=== PATIENT | male | born 1970 | race Caucasian/White ===

== ENCOUNTER 2019-01-11 08:49 | Emergency (ER) | payer BC, SELFPAY ==
[2019-01-11 08:51] VITALS: BP 144/91; PULSE 71; RESP 14; TEMP 36.6; O2SAT 98; BMI 19.5
--- NOTE | 2019-01-11 08:59 | EKG12_ITS ---
Test Reason : MEDICAL CLEARANCE Blood Pressure : / mmHG Vent. Rate : 070 BPM Atrial Rate : 070 BPM P-R Int : 108 ms QRS Dur : 104 ms QT Int : 388 ms P-R-T Axes : 079 063 056 degrees QTc Int : 419 ms Sinus rhythm with short NM Otherwise normal ECG Confirmed by CHESTER ESTRADA, SARAH ([id number]), technical editor ALMAS SERRANO ([id number]) on 01/13/2019 11:03:06 AM Referred By: IVELISSE Confirmed By:SARAH BRIGGS MD
[2019-01-11 09:49] VITALS: RESP 18
[2019-01-11 09:52] LABS: Absolute Lymphocyte Count 2.38 X10^3/ul (0.83-4.51); Absolute Neutrophil Count 6.6 X10^3/uL (2.0-7.7); Basophil# 0.08 X10^3/uL; Basophil% 0.8 % (0-1); Eosinophil# 0.33 X10^3/uL; Eosinophils% 3.3 % (0-5); Hematocrit 49.9 % (40-54); Hemoglobin 17.5 g/dl (13.0-16.5); Lymphocyte # 2.38 X10^3/ul (4.0); Lymphocyte % 23.5 % (19-41); Mean Corp Hgb Conc 35.1 g/gl (32-36); Mean Corpuscular Volume 94.2 fL (80-94); Mean Platelet Vol. 9.8 fl (6.2-12.0); Monocyte# 0.71 X10^3/uL; Neutrophil # 6.59 X10^3/uL (2.7-7.7); Neutrophil % 65.2 % (47-70); POSITIVE COUNT NO; POSITIVE DIFFERENTIAL NO; POSITIVE MORPHOLOGY NO; Platelet Count 255 K/mm3 (150-450); RBC Distribution Width SD 47.7 fl (35.1-43.9); White Blood Count 10.1 K/mm3 (4.4-11.0)
[2019-01-11 10:09] LABS: Bacteria 0 SEEN /hpf (None Seen); Mucous, Urine 0 SEEN /hpf (<or=2+); Red Blood Cells-Urine 0 SEEN /hpf (0-5); Squamous Epithelial Cells - UA 0 SEEN /hpf (0-5); White Blood Cells 0 SEEN /hpf (0-5)
--- NOTE | 2019-01-11 10:16 | ED.VISSUMM ---
- ER Visit Summary Date of Service: 01/11/19 Chief Complaint: Depression and suicidal ideation History of Present Illness: The patient is a 48 M resents the emergency department with depression. Patient is accompanied by his [id number]. He states that for about a year he has felt like a failure. He states that he got a good job in [employer] but will be losing his job as the facility is closing.. He states that he had an appendectomy about 1 year ago and has had some chronic pain in the right lower quadrant. He is . He is a 17-year-old daughter. He states he has a good relationship with them. He owns his home. He has no pending legal issues. He is a smoker rarely uses alcohol and occasionally uses marijuana. He states that use marijuana because it makes him feel better. He states that all of his issues seem to be snowballing and he feels increasingly worthless. He is now entertaining the idea of suicide. He called his mother in law today who brought him to the emergency department. Physical Examination: Afebrile vital signs are stable Gen: Well-nourished well-developed Head: Normocephalic atraumatic Eyes: Perrl EOMI ENT: TMs clear no rhinorrhea moist mucous membranes Neck: Supple no lymphadenopathy no JVD nontender CVS: Regular rate rhythm no murmurs normal S1-S2 Respiratory: No distress clear to auscultation bilaterally chest nontender Abdomen: Soft nontender nondistended normal bowel sounds no masses Back: Nontender Extremity: Nontender no edema Skin: Normal color no rash Neuro: alert orientated ?3 CN II-XII intact normal strength sensation Psych: Patient appears depressed. He admits to suicide as an option. He has a flat and blunted affect. He is occasionally tearful. He does not make any substantial eye contact. Test Results: EKG shows a sinus rhythm at a rate of 70. CBC CMP are negative. Urinalysis normal. Tox screen positive for cannabinoids. TSH 1.13. Emergency Department Course and Treatment: Patient was medically cleared and will be assessed by crisis. I would recommend hospital admission for suicidal ideation. Impression: 1. Major depression 2. Suicidal ideation This note was generated with [employer]ation software. It may contain incorrect words, spelling, and punctuation that were not noted in review of the chart prior to signing ED Disposition - Plan for ED Patient: Referrals: Juan José Monaco MD [Primary Care Provider] -
--- NOTE | 2019-01-11 10:19 | ED.DCSUM_ITS ---
- ER Visit Summary Date of Service: 01/11/19 Chief Complaint: Depression and suicidal ideation History of Present Illness: The patient is a 48 M resents the emergency department with depression. Patient is accompanied by his [id number]. He states that for about a year he has felt like a failure. He states that he got a good job in [employer] [employer] but will be losing his job as the facility is closing.. He states that he had an appendectomy about 1 year ago and has had some chronic pain in the right lower quadrant. He is . He is a 17-year-old daughter. He states he has a good relationship with them. He owns his home. He has no pending legal issues. He is a smoker rarely uses alcohol and occasionally uses marijuana. He states that use marijuana because it makes him feel better. He states that all of his issues seem to be snowballing and he feels increasingly worthless. He is now entertaining the idea of suicide. He called his mother in law today who brought him to the emergency department. Physical Examination: Afebrile vital signs are stable Gen: Well-nourished well-developed Head: Normocephalic atraumatic Eyes: Perrl EOMI ENT: TMs clear no rhinorrhea moist mucous membranes Neck: Supple no lymphadenopathy no JVD nontender CVS: Regular rate rhythm no murmurs normal S1-S2 Respiratory: No distress clear to auscultation bilaterally chest nontender Abdomen: Soft nontender nondistended normal bowel sounds no masses Back: Nontender Extremity: Nontender no edema Skin: Normal color no rash Neuro: alert orientated ?3 CN II-XII intact normal strength sensation Psych: Patient appears depressed. He admits to suicide as an option. He has a flat and blunted affect. He is occasionally tearful. He does not make any substantial eye contact. Test Results: EKG shows a sinus rhythm at a rate of 70. CBC CMP are negative. Urinalysis normal. Tox screen positive for cannabinoids. TSH 1.13. Emergency Department Course and Treatment: Patient was medically cleared and will be assessed by crisis. I would recommend hospital admission for suicidal ideation. Impression: 1. Major depression 2. Suicidal ideation This note was generated with [employer] software. It may contain incorrect words, spelling, and punctuation that were not noted in review of the chart prior to signing ED Disposition - Plan for ED Patient: Referrals: Juan José Monaco MD [Primary Care Provider] -
[2019-01-11 10:22] LABS: Color, Urine Yellow (Yellow); Glucose, Dipstick Normal (Normal); Ketone-Dipstick Negative (Negative); Leukocyte Esterase-Dipstick Negative /ul (Negative); Nitrite-Dipstick Negative (Negative); Occult Blood-Urine Negative /ul (Negative); Protein-Dipstick Negative (Negative); Specific Gravity, Urine 1.005 (1.002-1.030); Urine Bilirubin Dipstick Negative (Negative); Urine Clarity Clear (Clear); Urine Urobilinogen Normal (Normal)
[2019-01-11 10:39] LABS: Amphetamine Urine VISTA NEGATIVE (<1000 ng/mL); Barbiturate Urine VISTA NEGATIVE (< 200 ng/mL); Benzodiazepine Urine VISTA NEGATIVE (< 200 ng/mL); Cocaine Urine VISTA NEGATIVE (< 300 ng/mL); Ecstacy Urine VISTA NEGATIVE (< 500 ng/mL); Methadone Urine VISTA NEGATIVE (< 300 ng/mL); PCP Urine VISTA NEGATIVE (< 25 ng/mL); THC Urine VISTA POSITIVE (< 50 ng/mL); Vista UDS pH Range 6
[2019-01-11 10:47] LABS: AST(SGOT) 16 U/L (15-37); Alanine Aminotransfer ALT/SGPT 20 U/L (16-61); Alkaline Phosphatase 99 U/L (45-117); Anion Gap 3 (5-15); BUN 10 mg/dL (7-18); BUN/Creat Ratio 10.1 RATIO (10-20); Calcium,Total 9.3 mg/dL (8.5-10.1); Chloride 106 mmol/L (98-107); Creatinine, Serum 0.99 mg/dL (0.70-1.30); EST Glomerular Filtration Rate 85 mL/min (>60); Est Glom Filt Rate - Afr Amer 103 mL/min (>60); Estimated Creatinine Clearance 78.76 ml/min; Glucose 95 mg/dL (74-106); Lipase 269 U/L (73-393); Potassium 4.9 mmol/L (3.5-5.1); Sodium Level 136 mmol/L (136-145); Thyroid Stim Hormone (TSH) 1.13 uIU/mL (0.358-3.74)
[2019-01-11 11:00] VITALS: PULSE 78; RESP 18; O2SAT 98
[2019-01-11 12:00] VITALS: PULSE 80; RESP 16; O2SAT 98
[2019-01-11 13:00] VITALS: RESP 18
[2019-01-11 14:36] VITALS: BP 135/100; PULSE 71; RESP 16; TEMP 36.7; O2SAT 96
--- NOTE | 2019-01-11 14:45 | ED.RN ---
Report given to Octavio at [facility]
== END 2019-01-11 15:10 ==
PROVIDERS: Emergency Provider Emergency Medicine; Family Provider Family Medicine; PCP Family Medicine
DX: R45.851 Suicidal ideations (principal); F32.9 Major depressive disorder, single episode, unspecified; F17.200 Nicotine dependence, unspecified, uncomplicated
CPT/HCPCS: 80053; 80307; 80320; 81001; 83690; 84443; 85025; 93005; 99282; G0480

== ENCOUNTER 2021-08-06 14:39 | Emergency (ER) | payer OTHER, SELFPAY ==
[2021-08-06 14:40] VITALS: BP 154/88; PULSE 88; RESP 16; TEMP 36.7; O2SAT 98
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
[2021-08-06 15:49] LABS: Absolute Lymphocyte Count 2.12 X10^3/uL (0.83-4.51); Absolute Neutrophil Count 11.1 X10^3/uL (2.0-7.7); Basophil# 0.06 X10^3/uL; Basophil% 0.4 % (0-1); Eosinophil# 0.07 X10^3/uL; Eosinophils% 0.5 % (0-5); Hematocrit 46.2 % (40-54); Hemoglobin 15.8 g/dL (13.0-16.5); Lymphocyte # 2.12 X10^3/ul (0.83-4.51); Lymphocyte % 14.9 % (19-41); Mean Corp Hgb Conc 34.2 g/dL (32-36); Mean Corpuscular Hgb 32.4 pg (27.0-32.0); Mean Corpuscular Volume 94.7 fL (80-94); Mean Platelet Vol. 9.5 fl (6.2-12.0); Monocyte# 0.87 X10^3/uL; Monocyte% 6.1 % (0-10); NRBC Flagged by Analyzer 0 % (0-5); Neutrophil # 11.05 X10^3/uL (2.7-7.7); Neutrophil % 77.5 % (47-70); Platelet Count 264 K/mm3 (150-450); RBC Distribution Width CV 13.9 % (11.6-14.6); RBC Distribution Width SD 48.7 fl (35.1-43.9); Red Blood Count 4.88 M/mm3 (4.6-6.2); White Blood Count 14.3 K/mm3 (4.4-11.0)
--- NOTE | 2021-08-06 16:03 | ED.RN ---
Patient has shirt, jacket, pants, shoes, phone in personal bags. He is wearing socks and undies.
[2021-08-06 16:13] LABS: AST(SGOT) 13 U/L (15-37); Alanine Aminotransfer ALT/SGPT 17 U/L (16-61); Albumin, Serum 3.8 g/dL (3.2-5.0); Alkaline Phosphatase 102 U/L (45-117); Anion Gap 9 (5-15); BUN 11 mg/dL (7-18); BUN/Creat Ratio 10.6 RATIO (10-20); Bilirubin, Direct 0.14 mg/dL (0.00-0.30); Calcium,Total 9.3 mg/dL (8.5-10.1); Chloride 106 mmol/L (98-107); Creatinine, Serum 1.04 mg/dL (0.70-1.30); EST Glomerular Filtration Rate 80 mL/min (>60); Est Glom Filt Rate - Afr Amer 96 mL/min (>60); Estimated Creatinine Clearance 74.63 ml/min; Glucose 89 mg/dL (74-106); Lipase 98 U/L (73-393); Potassium 3.4 mmol/L (3.5-5.1); Protein, Total 7.8 g/dL (6.4-8.2); Sodium Level 141 mmol/L (136-145)
[2021-08-06 16:21] LABS: Amphetamine Urine VISTA NEGATIVE (<1000 ng/mL); Barbiturate Urine VISTA NEGATIVE (< 200 ng/mL); Benzodiazepine Urine VISTA NEGATIVE (< 200 ng/mL); Cocaine Urine VISTA NEGATIVE (< 300 ng/mL); Ecstacy Urine VISTA NEGATIVE (< 500 ng/mL); Methadone Urine VISTA NEGATIVE (< 300 ng/mL); PCP Urine VISTA NEGATIVE (< 25 ng/mL); THC Urine VISTA POSITIVE (< 50 ng/mL); Vista UDS pH Range 6
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
[2021-08-06 17:07] VITALS: PULSE 80; RESP 18; O2SAT 99
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
[2021-08-06] MEDS: LORazepam 2 MG/ML Syringe 1 MG IV (18:07)
[2021-08-06] MEDS: Potassium Chloride Oral Tablet 20 MEQ 40 MEQ PO (18:10)
--- NOTE | 2021-08-06 18:14 | ED.RN ---
REFERREAL TO [facility] AND [facility]. NO PINK SLIP
[2021-08-06 18:31] VITALS: RESP 16
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
--- NOTE | 2021-08-06 21:01 | EKG12_ITS ---
Test Reason : MENTAL HEALTH Blood Pressure : / mmHG Vent. Rate : 081 BPM Atrial Rate : 081 BPM P-R Int : 116 ms QRS Dur : 098 ms QT Int : 390 ms P-R-T Axes : 076 079 059 degrees QTc Int : 453 ms Normal sinus rhythm Normal ECG Confirmed by DANNIELLE ESTRADA, JESSICA ([id number]), scientific publications editor ALMAS SERRANO ([id number]) on 08/09/2021 9:28:26 AM Referred By: LUCHO Confirmed By:JESSICA SPICER MD
--- NOTE | 2021-08-06 21:41 | CM.ED ---
JOSEFINA Note SW called [facility] and spoke to intake. They inquired why patient is needing hospitalization. JOSEFINA advised that this telegraphic typewriter operator chief will have Shannan from [facility] contact them. JOSEFINA called Shannan at [facility] and asked her to call [facility]. SW received call from [facility]. Patient was accepted. Accepting MD is Dr. Parson. [facility] needs EKG and Maybee Slip faxed to them. JOSEFINA asked Bela, service unit operator oil well to fax pink slip and EKG to [facility]. JOSEFINA called Shannan at [facility]. Patient accepted at [facility].
[2021-08-06 21:47] VITALS: BP 145/99; PULSE 93; RESP 16; O2SAT 94
[2021-08-06 21:48] VITALS: BP 145/99; PULSE 93; RESP 16; O2SAT 95
== END 2021-08-06 22:15 ==
PROVIDERS: Emergency Provider Emergency Medicine; PCP Family Medicine
DX: F43.10 Post-traumatic stress disorder, unspecified (principal); F17.210 Nicotine dependence, cigarettes, uncomplicated; Z91.51 Personal history of suicidal behavior; Z79.899 Other long term (current) drug therapy
CPT/HCPCS: 80048; 80076; 80307; 82077; 83690; 85025; 87426; 93005; 96374; 99285; A4216